=== PATIENT | female | born 1980 | race Caucasian/White ===

== ENCOUNTER 2019-06-19 13:40 | Emergency (ER) | payer OTHER ==
[2019-06-19] MEDS ORDERED: Aspirin 325 MG TAB ONE (14:04)
[2019-06-19] MEDS ORDERED: Nitroglycerin 2% Ointment 1 INCH/1 GM Packet ONE (14:04)
[2019-06-19] MEDS ORDERED: Acetaminophen 500 MG TAB ONE (14:04)
--- NOTE | 2019-06-19 14:42 | RAD ---
XR Chest 1 View Portable HISTORY: Chest pain COMPARISON: None FINDINGS: The heart size is normal. The lungs are well expanded without focal areas of consolidation, pneumothorax or pleural effusions. IMPRESSION: No radiographic evidence of acute cardiopulmonary process.
[2019-06-19 14:52] LABS: #Basophils 0.1 thou/uL (0.0-0.2); #Eosinphils 0.2 thou/uL (0.0-0.7); #Lymphocytes 2.5 thou/uL (1.20-3.40); #Monocytes 0.5 thou/uL (0.11-0.59); #Neutrophils 4.1 thou/uL (1.40-6.50); %Eosinophils 2.9 % (0.0-10.0); %Monocytes 6.4 % (0.0-10.0); %Neutrophils 55.7 % (42.0-75.0); Hemoglobin 12.4 g/dL (12.0-16.0); Mean Corpuscular Hemoglobin 29.8 pg (27.0-31.0); Mean Corpuscular Volume 90.3 fL (78.0-98.0); Mean Platelet Volume 7.9 fL (7.4-10.4); Platelet Count 216 thou/uL (130-400); RBC Distribution Width 11.9 % (11.5-14.5); Red Blood Cell (RBC) Count 4.16 mill/uL (4.20-5.40); White Blood Cell (WBC) Count 7.4 thou/uL (4.8-10.8)
[2019-06-19 15:08] LABS: ALT (SGPT) 13 U/L (8-55); AST (SGOT) 13 U/L (5-34); Albumin 3.6 g/dL (3.5-5.0); Alkaline Phosphatase 78 U/L (40-150); Anion Gap 12 mmol/L (10-20); BUN (Urea Nitrogen) 13 mg/dL (7.0-18.7); Bilirubin, Total 0.3 mg/dL (0.2-1.2); Calc. Creatinine Clearance 0 mL/min (70-130); Calcium 8.9 mg/dL (7.8-10.44); Carbon Dioxide 24 mmol/L (22-29); Chloride 103 mmol/L (98-107); Estimated GFR-MDRD 90; Globulin 3.5 g/dL (2.4-3.5); Glucose 138 mg/dL (70-105); Potassium 3.9 mmol/L (3.5-5.1); Protein, Total 7.1 g/dL (6.0-8.3); Sodium 135 mmol/L (136-145)
[2019-06-19] MEDS ORDERED: Morphine 4 MG/ML VIAL ONE (15:19)
[2019-06-19] MEDS ORDERED: Ondansetron PF 4 MG/2 ML Vial ONE (15:19)
[2019-06-19 15:53] LABS: BHCG - Serum Negative (NEGATIVE); Pregs Control Background? CLEAR/WHITE (CLR/WHITE); Pregs Control Bar Appear? YES (CONTROL BAR)
--- NOTE | 2019-06-19 16:34 | CT ---
CT arteriogram chest with IV contrast and 3-D imaging CT arteriogram abdomen with IV contrast and 3-D imaging HISTORY: Chest and abdomen pain with radiation to the back. Findings there is good contrast opacification pulmonary arteries and the aorta without intimal flap o r leak. Normal caliber. Abdominal visceral artery origins are patent. Gallbladder surgically absent. Dystrophic calcification associated with the left kidney is similar to the recent noncontrast enhanced exam. Nonspecific lymph nodes throughout the retroperitoneum and mesentery. At the T11-12 level of the spine are degenerative changes with right posterolateral disc protrusion e ncroaching upon the right nerve root and compressing the right ventral aspect of the thecal sac. IMPRESSION: No acute vascular abnormalities are demonstrated. Degenerative changes lumbar spine with prominent chronic appearing right posterolateral disc protrusi on at the T11-12 level, probably affecting the right T11 nerve root. Clinical correlation regarding the right T11 dermatome is required.
[2019-06-19 17:08] LABS: Troponin I Less than 0.010 ng/mL (< 0.028)
--- NOTE | 2019-06-23 12:31 | EKG ---
Test Reason : Blood Pressure : / mmHG Vent. Rate : 086 BPM Atrial Rate : 086 BPM P-R Int : 182 ms QRS Dur : 102 ms QT Int : 386 ms P-R-T Axes : 021 -03 015 degrees QTc Int : 461 ms Normal sinus rhythm Normal ECG Confirmed by HOLA BRICEÑO DO ([id number]), marketing editor MEG PRINCE ([id number] on 06/23/2019 12:30:57 PM Referred By: Confirmed By:HOLA BRICEÑO DO
--- NOTE | 2019-06-23 12:32 | EKG ---
Test Reason : Blood Pressure : / mmHG Vent. Rate : 076 BPM Atrial Rate : 076 BPM P-R Int : 206 ms QRS Dur : 104 ms QT Int : 412 ms P-R-T Axes : 028 -01 008 degrees QTc Int : 463 ms Normal sinus rhythm Nonspecific ST-T changes Abnormal ECG Confirmed by HOLA BRICEÑO DO ([id number]), news editor MEG PRINCE ([id number]) on 06/23/2019 12:31:28 PM Referred By: Confirmed By:HOLA BRICEÑO DO
== END 2019-06-19 17:39 | disposition home or self-care (01) ==
LOC: ERS 13:40
DX: R07.89 Other chest pain (principal); E11.9 Type 2 diabetes mellitus without complications; I10 Essential (primary) hypertension; Z79.899 Other long term (current) drug therapy
CPT/HCPCS: 71045; 71275; 72191; 74175; 80053; 84484; 84703; 85025; 85379; 93005; 96374; 96375; J2270; J2405